=== PATIENT | female | born 1985 | race Caucasian/White ===

== ENCOUNTER 2017-05-15 13:27 | Emergency (ER) | payer MEDICAID ==
[~2017-05-15] VITALS: Ht 160 cm; Wt 105.0 kg
[2017-05-15] MEDS ORDERED: BIRTH CONTROL (13:41)
[2017-05-15] MEDS ORDERED: KETOROLAC 15MG/ML VIAL IM ONE (14:00)
[2017-05-15 14:06] VITALS: BP 145/90
== END 2017-05-15 15:01 | disposition home or self-care (01) ==
LOC: ER 13:59
DX: S46.911A Strain of unspecified muscle, fascia and tendon at shoulder and upper arm level, right arm, initial encounter (principal); M25.531 Pain in right wrist; M79.631 Pain in right forearm; Z90.49 Acquired absence of other specified parts of digestive tract; W18.39XA Other fall on same level, initial encounter; Y93.89 Activity, other specified; Y92.89 Other specified places as the place of occurrence of the external cause; Y99.8 Other external cause status
CPT/HCPCS: 29125; 73090; 73130; 96372; 99284; J1885; A4565

== ENCOUNTER 2018-03-14 08:03 | Observation (INO) | payer MEDICAID ==
[~2018-03-14] VITALS: Ht 160 cm; Wt 108.0 kg
[~2018-03-14 08:03] MED LIST: BIRTH CONTROL
[2018-03-14 08:08] VITALS: BP 139/74
[2018-03-14] MEDS ORDERED: PREN1TAB78 MT (08:48)
[2018-03-14 09:12] LABS: BASOPHILS % 0.4 % (0.0-2.0); EOSINOPHILS % 0.9 % (0.0-5.0); HEMATOCRIT. 34.2 % (36.0-48.0); HEMOGLOBIN. 11.2 g/dL (12.0-16.0); LYMPHOCYTES % 20.3 % (20.0-50.0); MEAN CORPUSCULAR HEMOGLOBIN 25.6 pg (28.0-32.0); MEAN CORPUSCULAR VOLUME 78.2 fL (81.0-99.0); MEAN PLATELET VOLUME 8.5 fl (7.4-10.4); MONOCYTES % 7.3 % (2.0-8.0); NEUTROPHILS % 71.1 % (40.0-76.0); PLATELET 265 x1000/uL (130-400); RED BLOOD CELL COUNT 4.37 mill/uL (4.2-5.4)
[2018-03-14 09:17] LABS: CLARITY URINE CLOUDY (CLEAR); COLOR URINE DARK YELLOW (YELLOW); KETONES URINE NEGATIVE (NEGATIVE); LEUKOCYTE ESTERASE URINE TRACE (NEGATIVE); NITRITE URINE NEGATIVE (NEGATIVE); OCCULT BLOOD URINE NEGATIVE (NEGATIVE); PH URINE 6.5 (4.5-8.0); PROTEIN URINE 1+ (NEGATIVE); SPECIFIC GRAVITY URINE 1.023 (1.005-1.030)
== END 2018-03-14 14:00 | disposition home or self-care (01) ==
LOC: ER 08:13 → L&D 08:21
PROVIDERS: ADMIT Obstetrics & Gynecology; ATTEND Obstetrics & Gynecology
DX: O26.892 Other specified pregnancy related conditions, second trimester (principal); R10.9 Unspecified abdominal pain; Z3A.25 25 weeks gestation of pregnancy
CPT/HCPCS: 36415; 76805; 81003; 85025; 99281; G0378

== ENCOUNTER 2018-03-27 14:33 | Observation (INO) | payer MEDICAID ==
[~2018-03-27] VITALS: Ht 160 cm; Wt 107.5 kg
[~2018-03-27 14:33] MED LIST changes: -BIRTH CONTROL; +PREN1TAB78 MT
[2018-03-27 15:23] LABS: CLARITY URINE CLOUDY (CLEAR); COLOR URINE DARK YELLOW (YELLOW); KETONES URINE TRACE (NEGATIVE); LEUKOCYTE ESTERASE URINE 1+ (NEGATIVE); NITRITE URINE NEGATIVE (NEGATIVE); OCCULT BLOOD URINE NEGATIVE (NEGATIVE); PROTEIN URINE 1+ (NEGATIVE); SPECIFIC GRAVITY URINE 1.029 (1.005-1.030)
[2018-03-27] MEDS ORDERED: LACTATED RINGERS 1,000 ML IV SCH (16:00)
[2018-03-27] MEDS ORDERED: CEFAZOLIN 2,000 MG in DEXT 5% WATER 100 ML IV SCH (16:30)
== END 2018-03-27 17:05 | disposition home or self-care (01) ==
LOC: L&D 14:33
PROVIDERS: ADMIT Obstetrics & Gynecology; ATTEND Obstetrics & Gynecology
DX: O26.892 Other specified pregnancy related conditions, second trimester (principal); R10.30 Lower abdominal pain, unspecified; R35.0 Frequency of micturition; Z3A.26 26 weeks gestation of pregnancy
CPT/HCPCS: 81003; 96365; G0378; J0690; J7120; 96360; 99281; J7060

== ENCOUNTER 2018-04-07 19:43 | Inpatient (IN) | payer MEDICAID ==
[~2018-04-07] VITALS: Ht 160 cm; Wt 108.0 kg
[2018-04-07 21:00] LABS: CLARITY URINE CLEAR (CLEAR); COLOR URINE YELLOW (YELLOW); KETONES URINE TRACE (NEGATIVE); LEUKOCYTE ESTERASE URINE NEGATIVE (NEGATIVE); NITRITE URINE NEGATIVE (NEGATIVE); OCCULT BLOOD URINE NEGATIVE (NEGATIVE); PROTEIN URINE TRACE (NEGATIVE); SPECIFIC GRAVITY URINE 1.026 (1.005-1.030)
[2018-04-07] MEDS ORDERED: LACTATED RINGERS 1,000 ML IV SCH (22:57)
[2018-04-07] MEDS ORDERED: DEXT 5%/LR + PITOCIN 20UNITS/L 1,000 ML IV SCH (22:57)
[2018-04-07] MEDS ORDERED: NALOXONE HCL 0.4 MG/ML 1ML VIAL IM PRN (23:00)
[2018-04-07] MEDS ORDERED: BUTORPHANOL TARTRATE 2 MG/ML VIAL IV PRN (23:00)
[2018-04-07] MEDS ORDERED: LIDOCAINE HCL 1% 20ML VIAL (Pyxis) INJ INFIL SCH (23:00)
[2018-04-07] MEDS ORDERED: METHYLERGONOVINE MALEATE 0.2 MG/ML IM PRN (23:00)
[2018-04-07] MEDS ORDERED: CARBOPROST TROMETHAMINE 250 MCG/ML AMPUL IM PRN (23:00)
[2018-04-07] MEDS ORDERED: AMPICILLIN 2,000 MG in SODIUM CHLORIDE 0.9% 100 ML IV NR (23:09)
[2018-04-07] MEDS ORDERED: MAGNESIUM 4 G PREMIX 100 ML IV NR (23:19)
[2018-04-07] MEDS: LACTATED RINGERS 1,000 ML IV SCH (23:36)
[2018-04-07] MEDS: BETAMETHASONE ACET/BETAMET 30 MG/5 ML VIAL IM SCH (23:37)
[2018-04-08] LABS: BASOPHILS % 0.3 % (0.0-2.0); EOSINOPHILS % 0.5 % (0.0-5.0); HEMATOCRIT. 33.3 % (36.0-48.0); HEMOGLOBIN. 10.9 g/dL (12.0-16.0); LYMPHOCYTES % 22.8 % (20.0-50.0); MEAN CORPUSCULAR HEMOGLOBIN 25.1 pg (28.0-32.0); MEAN CORPUSCULAR VOLUME 76.3 fL (81.0-99.0); MEAN PLATELET VOLUME 8.5 fl (7.4-10.4); MONOCYTES % 7.8 % (2.0-8.0); NEUTROPHILS % 68.6 % (40.0-76.0); PLATELET 316 x1000/uL (130-400); RED BLOOD CELL COUNT 4.36 mill/uL (4.2-5.4); RED CELL DISTRIBUTION WIDTH 15.8 % (11.6-14.6)
[2018-04-08 00:04] LABS: PARTIAL THROMBOPLASTIN TIME 25.6 sec (23.4-31.0); PROTHROMBIN TIME 9.8 sec (9.1-11.1)
[2018-04-08] MEDS: MAGNESIUM 20 G PREMIX (L & D) 500 ML IV SCH ×2 (00:18→19:29)
[2018-04-08] MEDS: AZITHROMYCIN 250 MG in DEXT 5% WATER 250 ML IV SCH (00:19)
[2018-04-08 01:48] LABS: HEPATITIS B SURFACE ANTIGEN NEGATIVE
[2018-04-08] MEDS: AMPICILLIN 1,000 MG in SODIUM CHLORIDE 0.9% 50 ML IV SCH ×3 (05:42→18:04)
[2018-04-08] MEDS: LACTATED RINGERS 1,000 ML IV SCH ×2 (05:43→15:40)
[2018-04-08] MEDS: BETAMETHASONE ACET/BETAMET 30 MG/5 ML VIAL IM SCH (23:48)
[2018-04-09] MEDS: AMPICILLIN 1,000 MG in SODIUM CHLORIDE 0.9% 50 ML IV SCH ×4 (00:16→18:08)
[2018-04-09] MEDS: AZITHROMYCIN 250 MG in DEXT 5% WATER 250 ML IV SCH (01:01)
[2018-04-09] MEDS: LACTATED RINGERS 1,000 ML IV SCH (04:33)
[2018-04-09] MEDS ORDERED: DEXT 5%/LR + PITOCIN 20UNITS/L 1,000 ML IV SCH (15:26)
[2018-04-09] MEDS ORDERED: LACTATED RINGERS 1,000 ML IV SCH (15:30)
[2018-04-09] MEDS ORDERED: LIDOCAINE HCL 1% 20ML VIAL (Pyxis) INJ INFIL SCH (15:30)
[2018-04-09] MEDS ORDERED: NALOXONE HCL 0.4 MG/ML 1ML VIAL IM PRN (15:30)
[2018-04-09] MEDS ORDERED: METHYLERGONOVINE MALEATE 0.2 MG/ML IM PRN (15:30)
[2018-04-09] MEDS ORDERED: CARBOPROST TROMETHAMINE 250 MCG/ML AMPUL IM PRN (15:30)
[2018-04-09] MEDS ORDERED: MAGNESIUM 20 G PREMIX (L & D) 500 ML IV SCH (15:30)
[2018-04-09] MEDS ORDERED: AMPICILLIN 1,000 MG in SODIUM CHLORIDE 0.9% 50 ML IV SCH (15:45)
[2018-04-09 19:13] LABS: BASOPHILS % 0.1 % (0.0-2.0); HEMATOCRIT. 30.8 % (36.0-48.0); HEMOGLOBIN. 9.9 g/dL (12.0-16.0); LYMPHOCYTES % 10.9 % (20.0-50.0); MEAN CORPUSCULAR HEMOGLOBIN 24.8 pg (28.0-32.0); MEAN CORPUSCULAR VOLUME 76.7 fL (81.0-99.0); MEAN PLATELET VOLUME 7.9 fl (7.4-10.4); MONOCYTES % 6.2 % (2.0-8.0); NEUTROPHILS % 82.8 % (40.0-76.0); PLATELET 300 x1000/uL (130-400); RED BLOOD CELL COUNT 4.01 mill/uL (4.2-5.4); RED CELL DISTRIBUTION WIDTH 15.9 % (11.6-14.6)
[2018-04-10] MEDS: AMPICILLIN 1,000 MG in SODIUM CHLORIDE 0.9% 50 ML IV SCH ×4 (00:01→17:51)
[2018-04-10] MEDS: LACTATED RINGERS 1,000 ML IV SCH ×3 (00:07→17:47)
[2018-04-10] MEDS ORDERED: AZITHROMYCIN 500 MG in DEXT 5% WATER 250 ML IV SCH (00:15)
[2018-04-10 13:01] LABS: BASOPHILS % 0.4 % (0.0-2.0); EOSINOPHILS % 0.4 % (0.0-5.0); HEMATOCRIT. 29.2 % (36.0-48.0); HEMOGLOBIN. 9.7 g/dL (12.0-16.0); LYMPHOCYTES % 15.3 % (20.0-50.0); MEAN CORPUSCULAR HEMOGLOBIN 25.6 pg (28.0-32.0); MEAN CORPUSCULAR VOLUME 77.1 fL (81.0-99.0); MEAN PLATELET VOLUME 8.4 fl (7.4-10.4); MONOCYTES % 7.3 % (2.0-8.0); NEUTROPHILS % 76.6 % (40.0-76.0); PLATELET 259 x1000/uL (130-400); RED BLOOD CELL COUNT 3.79 mill/uL (4.2-5.4); RED CELL DISTRIBUTION WIDTH 15.6 % (11.6-14.6)
[2018-04-10] MEDS: MICONAZOLE NITRATE 2% OINT 71GM TOP SCH (21:51)
[2018-04-10] MEDS: AMOXICILLIN 250MG CAPSULE PO SCH (22:10)
[2018-04-10] MEDS: AZITHROMYCIN 250 MG TABLET PO SCH (22:11)
[2018-04-11] MEDS: AMOXICILLIN 250MG CAPSULE PO SCH ×3 (06:00→22:37)
[2018-04-11] MEDS: LACTATED RINGERS 1,000 ML IV SCH ×2 (06:34→20:31)
[2018-04-11] MEDS: ACETAMINOPHEN 325MG TABLET PO PRN (06:37)
[2018-04-11 08:38] LABS: BASOPHILS % 0.3 % (0.0-2.0); EOSINOPHILS % 0.5 % (0.0-5.0); HEMOGLOBIN. 9.6 g/dL (12.0-16.0); LYMPHOCYTES % 18.4 % (20.0-50.0); MEAN CORPUSCULAR HEMOGLOBIN 25.6 pg (28.0-32.0); MEAN CORPUSCULAR VOLUME 77.1 fL (81.0-99.0); MEAN PLATELET VOLUME 8.1 fl (7.4-10.4); MONOCYTES % 7.6 % (2.0-8.0); NEUTROPHILS % 73.2 % (40.0-76.0); PLATELET 267 x1000/uL (130-400); RED BLOOD CELL COUNT 3.76 mill/uL (4.2-5.4); RED CELL DISTRIBUTION WIDTH 15.9 % (11.6-14.6)
[2018-04-11] MEDS ORDERED: LIDOCAINE HCL/PF 1% 10 MG/ML 5ML VIAL ONE (10:27)
[2018-04-11] MEDS: MICONAZOLE NITRATE 2% OINT 71GM TOP SCH ×2 (10:54→21:15)
[2018-04-11] MEDS: AZITHROMYCIN 250 MG TABLET PO SCH (21:13)
[2018-04-12] MEDS: LACTATED RINGERS 1,000 ML IV SCH (05:23)
[2018-04-12] MEDS: AMOXICILLIN 250MG CAPSULE PO SCH ×3 (05:27→22:05)
[2018-04-12 09:12] LABS: BASOPHILS % 0.2 % (0.0-2.0); HEMATOCRIT. 30.5 % (36.0-48.0); HEMOGLOBIN. 10.1 g/dL (12.0-16.0); LYMPHOCYTES % 18.4 % (20.0-50.0); MEAN CORPUSCULAR HEMOGLOBIN 25.3 pg (28.0-32.0); MEAN CORPUSCULAR VOLUME 76.7 fL (81.0-99.0); MEAN PLATELET VOLUME 8.2 fl (7.4-10.4); MONOCYTES % 7.3 % (2.0-8.0); NEUTROPHILS % 73.1 % (40.0-76.0); PLATELET 293 x1000/uL (130-400); RED BLOOD CELL COUNT 3.98 mill/uL (4.2-5.4); RED CELL DISTRIBUTION WIDTH 15.9 % (11.6-14.6)
[2018-04-12] MEDS: ACETAMINOPHEN 325MG TABLET PO PRN ×2 (13:18→22:15)
[2018-04-12] MEDS: MICONAZOLE NITRATE 2% OINT 71GM TOP SCH ×2 (13:18→22:05)
[2018-04-12] MEDS ORDERED: DIPHENHYDRAMINE 25MG CAPSULE PO NR (20:00)
[2018-04-12] MEDS: AZITHROMYCIN 250 MG TABLET PO SCH (22:34)
[2018-04-13] MEDS: LACTATED RINGERS 1,000 ML IV SCH ×2 (01:06→16:35)
[2018-04-13] MEDS: AMOXICILLIN 250MG CAPSULE PO SCH ×3 (05:57→21:54)
[2018-04-13] MEDS: MICONAZOLE NITRATE 2% OINT 71GM TOP SCH (09:02)
[2018-04-13 11:35] LABS: BASOPHILS % 0.3 % (0.0-2.0); EOSINOPHILS % 1.2 % (0.0-5.0); HEMATOCRIT. 32.9 % (36.0-48.0); HEMOGLOBIN. 10.9 g/dL (12.0-16.0); LYMPHOCYTES % 18.2 % (20.0-50.0); MEAN CORPUSCULAR HEMOGLOBIN 25.3 pg (28.0-32.0); MEAN CORPUSCULAR VOLUME 76.2 fL (81.0-99.0); MONOCYTES % 7.4 % (2.0-8.0); NEUTROPHILS % 72.9 % (40.0-76.0); PLATELET 297 x1000/uL (130-400); RED BLOOD CELL COUNT 4.32 mill/uL (4.2-5.4); RED CELL DISTRIBUTION WIDTH 15.7 % (11.6-14.6)
[2018-04-13] MEDS: AZITHROMYCIN 250 MG TABLET PO SCH (21:54)
[2018-04-14] MEDS: MICONAZOLE NITRATE 2% OINT 71GM TOP SCH (00:08)
[2018-04-14] MEDS: AMOXICILLIN 250MG CAPSULE PO SCH ×3 (06:25→22:25)
[2018-04-14] MEDS: LACTATED RINGERS 1,000 ML IV SCH (06:56)
[2018-04-14 12:19] LABS: BASOPHILS % 0.4 % (0.0-2.0); EOSINOPHILS % 0.9 % (0.0-5.0); HEMOGLOBIN. 11.1 g/dL (12.0-16.0); LYMPHOCYTES % 18.4 % (20.0-50.0); MEAN CORPUSCULAR HEMOGLOBIN 25.5 pg (28.0-32.0); MEAN CORPUSCULAR VOLUME 76.1 fL (81.0-99.0); MEAN PLATELET VOLUME 8.3 fl (7.4-10.4); MONOCYTES % 7.7 % (2.0-8.0); NEUTROPHILS % 72.6 % (40.0-76.0); PLATELET 296 x1000/uL (130-400); RED BLOOD CELL COUNT 4.34 mill/uL (4.2-5.4); RED CELL DISTRIBUTION WIDTH 15.7 % (11.6-14.6)
[2018-04-14] MEDS: AZITHROMYCIN 250 MG TABLET PO SCH (22:00)
[2018-04-15] MEDS: AMOXICILLIN 250MG CAPSULE PO SCH ×3 (06:07→22:00)
[2018-04-15] MEDS ORDERED: LACTATED RINGERS 1,000 ML IV SCH (19:45)
[2018-04-15] MEDS: AZITHROMYCIN 250 MG TABLET PO SCH (22:00)
[2018-04-16] MEDS: AMOXICILLIN 250MG CAPSULE PO SCH ×3 (06:39→21:51)
[2018-04-16] MEDS: LACTATED RINGERS 1,000 ML IV SCH ×2 (08:52→16:45)
[2018-04-16 10:30] LABS: BASOPHILS % 0.3 % (0.0-2.0); HEMATOCRIT. 30.4 % (36.0-48.0); HEMOGLOBIN. 10.1 g/dL (12.0-16.0); MEAN CORPUSCULAR HEMOGLOBIN 25.3 pg (28.0-32.0); MEAN CORPUSCULAR VOLUME 76.2 fL (81.0-99.0); MEAN PLATELET VOLUME 8.5 fl (7.4-10.4); NEUTROPHILS % 70.7 % (40.0-76.0); PLATELET 289 x1000/uL (130-400); RED BLOOD CELL COUNT 3.98 mill/uL (4.2-5.4); RED CELL DISTRIBUTION WIDTH 15.8 % (11.6-14.6)
[2018-04-16] MEDS: AZITHROMYCIN 250 MG TABLET PO SCH (21:51)
[2018-04-17] MEDS: LACTATED RINGERS 1,000 ML IV SCH ×3 (02:52→16:30)
[2018-04-17] MEDS: AMOXICILLIN 250MG CAPSULE PO SCH ×3 (06:15→22:02)
[2018-04-17 19:59] LABS: *AMPHETAMINES SCREEN URINE NEGATIVE (NEGATIVE); *BARBITURATES SCREEN URINE NEGATIVE (NEGATIVE); *COCAINE SCREEN URINE NEGATIVE (NEGATIVE); CANNABINOID URINE SCREEN NEGATIVE (NEGATIVE)
[2018-04-17 20:00] LABS: *BENZODIAZEPINES SCREEN URINE NEGATIVE (NEGATIVE); METHADONE URINE SCREEN NEGATIVE (NEGATIVE); OPIATES URINE SCREEN NEGATIVE (NEGATIVE); PHENCYCLIDINE URINE SCREEN NEGATIVE (NEGATIVE)
[2018-04-17] MEDS: AZITHROMYCIN 250 MG TABLET PO SCH (22:02)
[2018-04-18] MEDS: LACTATED RINGERS 1,000 ML IV SCH ×3 (00:27→16:06)
[2018-04-18] MEDS: AMOXICILLIN 250MG CAPSULE PO SCH ×3 (06:04→22:38)
[2018-04-18 07:10] LABS: BASOPHILS % 0.3 % (0.0-2.0); EOSINOPHILS % 1.1 % (0.0-5.0); HEMOGLOBIN. 10.2 g/dL (12.0-16.0); MEAN CORPUSCULAR HEMOGLOBIN 25.1 pg (28.0-32.0); MEAN CORPUSCULAR VOLUME 76.5 fL (81.0-99.0); MEAN PLATELET VOLUME 8.2 fl (7.4-10.4); MONOCYTES % 7.4 % (2.0-8.0); NEUTROPHILS % 69.2 % (40.0-76.0); PLATELET 281 x1000/uL (130-400); RED BLOOD CELL COUNT 4.05 mill/uL (4.2-5.4); RED CELL DISTRIBUTION WIDTH 16.1 % (11.6-14.6)
[2018-04-18] MEDS ORDERED: AZITHROMYCIN 250 MG TABLET PO SCH (23:00)
[2018-04-19] MEDS ORDERED: LACTATED RINGERS 1,000 ML IV SCH (03:45)
[2018-04-19] MEDS: NORMAL SALINE 0.9% 10 ML SYR IVF SCH (20:00)
[2018-04-20 19:47] LABS: HEMATOCRIT. 33.1 % (36.0-48.0); HEMOGLOBIN. 10.7 g/dL (12.0-16.0); MEAN CORPUSCULAR HEMOGLOBIN 24.6 pg (28.0-32.0); MEAN CORPUSCULAR VOLUME 75.8 fL (81.0-99.0); PLATELET 317 x1000/uL (130-400); RED BLOOD CELL COUNT 4.36 mill/uL (4.2-5.4); RED CELL DISTRIBUTION WIDTH 15.6 % (11.6-14.6)
[2018-04-20 20:18] LABS: PLATELET ESTIMATE NORMAL
[2018-04-21] MEDS: NORMAL SALINE 0.9% 10 ML SYR IVF SCH (20:00)
[2018-04-22 06:37] LABS: HEMATOCRIT. 31.8 % (36.0-48.0); HEMOGLOBIN. 10.5 g/dL (12.0-16.0); MEAN CORPUSCULAR VOLUME 75.5 fL (81.0-99.0); PLATELET 289 x1000/uL (130-400); RED BLOOD CELL COUNT 4.21 mill/uL (4.2-5.4); RED CELL DISTRIBUTION WIDTH 15.9 % (11.6-14.6)
[2018-04-22 16:32] LABS: PLATELET ESTIMATE NORMAL
[2018-04-22 20:50] VITALS: BP 103/55
[2018-04-23] VITALS: BP 109/59
[2018-04-23 04:30] VITALS: BP 103/62
[2018-04-23] MEDS ORDERED: DEXT 5%/LR + PITOCIN 20UNITS/L 1,000 ML IV SCH (15:25)
[2018-04-23] MEDS ORDERED: LACTATED RINGERS 1,000 ML IV SCH (15:25)
[2018-04-23] MEDS ORDERED: NALOXONE HCL 0.4 MG/ML 1ML VIAL IM PRN (15:30)
[2018-04-23] MEDS ORDERED: CARBOPROST TROMETHAMINE 250 MCG/ML AMPUL IM PRN (15:30)
[2018-04-23] MEDS ORDERED: METHYLERGONOVINE MALEATE 0.2 MG/ML IM PRN (15:30)
[2018-04-23] MEDS ORDERED: MISOPROSTOL 100MCG TABLET VG SCH (15:30)
[2018-04-23] MEDS ORDERED: BUTORPHANOL TARTRATE 2 MG/ML VIAL IV PRN (15:30)
[2018-04-23] MEDS ORDERED: LIDOCAINE HCL 1% 20ML VIAL (Pyxis) INJ INFIL SCH (15:30)
[2018-04-23] MEDS ORDERED: ONDANSETRON HCL 4MG/2ML INJ IV PRN (15:30)
[2018-04-23] MEDS ORDERED: AMPICILLIN 2,000 MG in SODIUM CHLORIDE 0.9% 100 ML IV SCH (16:00)
[2018-04-23] MEDS ORDERED: FENTANYL CITRATE/PF 50MCG/ML 2ML VIAL ONE (20:46)
[2018-04-23] MEDS ORDERED: BUPIVACAINE HCL/NS/PF EPIDURAL 100 ML EP ONE (20:46)
[2018-04-23] MEDS ORDERED: BUPIVACAINE HCL/PF 0.25% (2.5MG/ML) 10ML ONE (20:46)
[2018-04-23] MEDS ORDERED: EPHEDRINE SULFATE 50MG/ML VIAL ONE (21:24)
[2018-04-23] MEDS ORDERED: SODIUM CHLORIDE 0.9% 10ML VIAL ONE ×2 (21:24→21:31)
[2018-04-23] MEDS ORDERED: AMPICILLIN 1,000 MG in SODIUM CHLORIDE 0.9% 50 ML IV SCH (22:00)
[2018-04-23] MEDS: ACETAMINOPHEN 325MG TABLET PO PRN (22:42)
[2018-04-23] MEDS ORDERED: GENTAMICIN 120MG PREMIX 100 ML IV SCH (23:30)
[2018-04-24] VITALS (7 sets, daily range): BP systolic 98–112; BP diastolic 38–70
[2018-04-24] MEDS ORDERED: DEXT 5%/LR + PITOCIN 20UNITS/L 1,000 ML IV SCH (08:22)
[2018-04-24] MEDS ORDERED: IBUPROFEN 400MG TABLET PO PRN (08:30)
[2018-04-24] MEDS ORDERED: ACETAMINOPHEN WITH CODEINE 300/30MG TABLET PO PRN (08:30)
[2018-04-24] MEDS ORDERED: RHO(D) IMMUNE GLOBULIN 300 MCG/SYR IM PRN (08:30)
[2018-04-24] MEDS ORDERED: IBUPROFEN 800MG TABLET PO PRN (08:30)
[2018-04-24 09:33] LABS: HEMATOCRIT. 30.6 % (36.0-48.0); MEAN CORPUSCULAR HEMOGLOBIN 24.8 pg (28.0-32.0); MEAN CORPUSCULAR VOLUME 75.8 fL (81.0-99.0); PLATELET 242 x1000/uL (130-400); RED BLOOD CELL COUNT 4.04 mill/uL (4.2-5.4); RED CELL DISTRIBUTION WIDTH 15.8 % (11.6-14.6)
[2018-04-24 09:34] LABS: BASOPHILS % 0.3 % (0.0-2.0); EOSINOPHILS % 0.2 % (0.0-5.0); LYMPHOCYTES % 7.2 % (20.0-50.0); MEAN PLATELET VOLUME 9.2 fl (7.4-10.4); MONOCYTES % 6.6 % (2.0-8.0); NEUTROPHILS % 85.7 % (40.0-76.0)
[2018-04-24] MEDS: AMOXICILLIN 500 MG CAPSULE PO SCH ×2 (11:44→19:07)
[2018-04-24 16:59] LABS: BASOPHILS % 0.3 % (0.0-2.0); EOSINOPHILS % 0.5 % (0.0-5.0); HEMATOCRIT. 34.3 % (36.0-48.0); HEMOGLOBIN. 11.1 g/dL (12.0-16.0); LYMPHOCYTES % 7.4 % (20.0-50.0); MEAN CORPUSCULAR HEMOGLOBIN 24.8 pg (28.0-32.0); MEAN CORPUSCULAR VOLUME 76.5 fL (81.0-99.0); MEAN PLATELET VOLUME 8.8 fl (7.4-10.4); MONOCYTES % 5.5 % (2.0-8.0); NEUTROPHILS % 86.3 % (40.0-76.0); PLATELET 272 x1000/uL (130-400); RED BLOOD CELL COUNT 4.48 mill/uL (4.2-5.4); RED CELL DISTRIBUTION WIDTH 16.1 % (11.6-14.6)
[2018-04-24 17:12] LABS: CHLORIDE 106 mEq/L (98-107)
[2018-04-24] MEDS: MICONAZOLE NITRATE 2% OINT 71GM TOP SCH (21:00)
[2018-04-24] MEDS: NORMAL SALINE 0.9% 10 ML SYR IVF SCH (22:00)
[2018-04-25 00:05] VITALS: BP 100/51
[2018-04-25] MEDS: AMOXICILLIN 500 MG CAPSULE PO SCH ×3 (03:29→18:49)
[2018-04-25 08:00] VITALS: BP 100/50
[2018-04-25 16:00] VITALS: BP 103/52
[2018-04-25 20:00] VITALS: BP 111/77
[2018-04-26] MEDS: AMOXICILLIN 500 MG CAPSULE PO SCH ×2 (02:53→10:19)
[2018-04-26 04:50] VITALS: BP 105/70
[2018-04-26 07:24] LABS: BASOPHILS % 0.5 % (0.0-2.0); HEMATOCRIT. 31.9 % (36.0-48.0); HEMOGLOBIN. 10.5 g/dL (12.0-16.0); LYMPHOCYTES % 33.5 % (20.0-50.0); MEAN CORPUSCULAR HEMOGLOBIN 25.1 pg (28.0-32.0); MEAN PLATELET VOLUME 8.6 fl (7.4-10.4); MONOCYTES % 9.3 % (2.0-8.0); NEUTROPHILS % 54.7 % (40.0-76.0); PLATELET 278 x1000/uL (130-400); RED CELL DISTRIBUTION WIDTH 16.2 % (11.6-14.6)
[2018-04-26 08:20] VITALS: BP 101/68
[2018-04-26] MEDS ORDERED: TETANUS, DIPHTHERIA, PERTUSSIS VAC/PF 0.5ML (>7YR OLD) IM ONE (09:00)
[2018-04-26] MEDS ORDERED: INFLUENZA VIRUS VACCINE(AFLURIA) 0.5ML SYR IM ONE (13:00)
== END 2018-04-26 13:30 | disposition home or self-care (01) | DRG 560 ==
LOC: L&D 19:43 → OBSVTOIN 19:43 → L&D 04-09 07:39 → 7EST PP/OB 04-13 15:04 → L&D 04-13 17:01 → 7EST PP/OB 04-22 20:45 → L&D 04-23 15:50 → 7EST PP/OB 04-24 02:10
PROVIDERS: ADMIT Obstetrics & Gynecology; ATTEND Obstetrics & Gynecology
PROC: 10E0XZZ Delivery of Products of Conception, External Approach (ICD-10-PCS; 2018-04-24)
PROC: 00HU33Z Insertion of Infusion Device into Spinal Canal, Percutaneous Approach (ICD-10-PCS; 2018-04-24)
PROC: 3E0R3BZ Introduction of Anesthetic Agent into Spinal Canal, Percutaneous Approach (ICD-10-PCS; principal; 2018-04-24 00:11)
DX: O42.913 Preterm premature rupture of membranes, unspecified as to length of time between rupture and onset of labor, third trimester (principal); O41.1230 Chorioamnionitis, third trimester, not applicable or unspecified; O41.03X0 Oligohydramnios, third trimester, not applicable or unspecified; Z37.0 Single live birth; E66.01 Morbid (severe) obesity due to excess calories; O99.214 Obesity complicating childbirth; O69.1XX0 Labor and delivery complicated by cord around neck, with compression, not applicable or unspecified; Z3A.30 30 weeks gestation of pregnancy; Z68.41 Body mass index [BMI] 40.0-44.9, adult; Z82.49 Family history of ischemic heart disease and other diseases of the circulatory system; Z83.3 Family history of diabetes mellitus
CPT/HCPCS: 36415; 76805; 76815; 76818; 80048; 80305; 83735; 85007; 85027; 86592; 86703; 86762; 86850; 86900; 86920; 87070; 87077; 87340; 88307; 90686; 90715; A4216; G0378; J0290; J0456; J0702; J1580; J2590; J3010; J3475; J3490; J7030; J7050; J7060; J7120; Q0163; A4315